=== PATIENT | male | born 1965 | race African-American/Black ===

== ENCOUNTER 2019-06-01 15:40 | Emergency (ER) | payer MEDICAID ==
[~2019-06-01] VITALS: Ht 170.2 cm; Wt 61.2 kg
[2019-06-01 15:40] VITALS: BP 137/87
--- NOTE | 2019-06-01 15:40 | NUR ---
ED Nurse Note: pt brought by [facility] from [facility] due to unable to unzip the pants zipper. per ambulace personnel, SNF staff able to remove the pants but zipper still on left side of scrotum. pt denies any pain. no swelling or bleeding noted. pt is non-verbal. follow the commands and answer using gesture. breath sound clear. respirations even and non-labored noted. will wait for the further order.
--- NOTE | 2019-06-01 15:42 | Emergency Room Report ---
History of Present Illness General Chief Complaint: Male Urogenital Problems Source: Patient, EMS Present Illness HPI The patient presents with a zipper caught in his scrotum. There will able to cut off the cloth portion of his pants but the zipper portion is still stuck. History of unspecified dementia. The patient denies prior stroke he is in assisted living. No fevers, chills, sore throat, chest pain, palpitations, nausea, vomiting, diarrhea, dysuria, abdominal pain, shortness of breath, joint pain, depression, anxiety, visual changes, headache. Allergies: Coded Allergies: No Known Allergies (Unverified , 06/01/19) Patient History Past Medical History: see triage record, old chart reviewed, other - Unspecified dementia Social History Narrative Son Ray convalescent Reviewed Nursing Documentation: PMH: Agreed; PSxH: Agreed Nursing Documentation-PMH Hx Cardiac Problems: No - Peripheral Vascular Disease History Of Psychiatric Problem: Yes - Unspecified Dementia Review of Systems All Other Systems: negative except mentioned in HPI Physical Exam Vital Signs Date Time Temp Pulse Resp B/P (MAP) Pulse Ox O2 Delivery O2 Flow Rate FiO2 06/01/19 15:32 99.7 93 18 137/87 (104) 95 Room Air Sp02 EP Interpretation: reviewed, normal General Appearance: no apparent distress, GCS 15, Chronically Ill Head: normocephalic, other - Scar forehead Eyes: bilateral eye normal inspection, bilateral eye PERRL, bilateral eye EOMI ENT: moist mucus membranes Neck: full range of motion, supple Respiratory: lungs clear Cardiovascular #1: regular rate, rhythm Gastrointestinal: normal inspection, non tender Genitourinary: no CVA tenderness, penis normal, other - Zipper stuck on left scrotum Musculoskeletal: other - Atrophy Neurologic: alert, other - Dysarthria, ataxic movements of arms Psychiatric: mood/affect normal Skin: warm/dry, abrasions - Scrotum after zipper removed Medical Decision Making Diagnostic Impression: Primary Impression: Zipper injury scrotum Additional Impression: Abrasion of scrotum Qualified Codes: S30.813A - Abrasion of scrotum and testes, initial encounter ER Course Patient presents with a zipper stuck on his scrotum. He is nontoxic and there is no fever. This needs to be removed. Unable to remove 10 snaps provided by environmental services. However the zipper was slightly loosened. When attempting to obtain wire cutters nurse was able to remove the zipper. Neosporin was applied. Patient stable for outpatient observation and treatment. Last Vital Signs Date Time Temp Pulse Resp B/P (MAP) Pulse Ox O2 Delivery O2 Flow Rate FiO2 06/01/19 20:14 98.5 76 18 143/97 96 Room Air Status: improved Disposition: ASSISTED LIVING Condition: Improved Scripts Bacitracin (Bacitracin) 28.4 Gm Oint...g. 1 APPLIC TOPIC BIDAC, #20 GM Prov: Endy Grewal MD 06/01/19 Endy Grewal MD Jun 01, 2019 15:42
--- NOTE | 2019-06-01 17:30 | NUR ---
ED Nurse Note: MARTHA Magana able to unzipped the zipper. no active bleeding noted. no swelling noted. Dr. Grewal notified.
[2019-06-01] MEDS ORDERED: Neosporin Oint Ud Pkt TOPIC ONE (17:45)
[2019-06-01] MEDS ORDERED: BACITRACIN15 GM TOPIC (17:51)
--- NOTE | 2019-06-01 18:36 | NUR ---
ED Nurse Note: Reports given to MARTHA Machuca at [facility].
[2019-06-01 18:57] VITALS: BP 150/100
--- NOTE | 2019-06-01 19:08 | NUR ---
ED Nurse Note: received report from Elisabet and [facility], pt vss, resp even and unlabored on RA, pt is cleared to go back to the facility, pending transportation.
--- NOTE | 2019-06-01 19:08 | NUR ---
HAND-OFF: Report given to Juan THOMAS. pending transportation
--- NOTE | 2019-06-01 19:50 | NUR ---
ED Nurse Note: pt given sandwich. verified w/ ermd.
--- NOTE | 2019-06-01 20:00 | NUR ---
[facility] just arrived.
--- NOTE | 2019-06-01 20:01 | NUR ---
ED Nurse Note: report given to EMS staff, pt is cleared to be discharged per ERMD, pt will be transferring back to [facility]. care endorsed to ambulance staff.
--- NOTE | 2019-06-01 20:13 | NUR ---
ED Nurse Note: discharge paperwork w/ prescription given to ems staff to endorse it to medical staff at [facility].
[2019-06-01 20:14] VITALS: BP 143/97
== END 2019-06-01 20:14 | disposition home or self-care (01) ==
LOC: EDBD 15:40 → EMR 16:34
DX: S30.813A Abrasion of scrotum and testes, initial encounter (principal); F03.90 Unspecified dementia, unspecified severity, without behavioral disturbance, psychotic disturbance, mood disturbance, and anxiety; I73.9 Peripheral vascular disease, unspecified; W23.0XXA Caught, crushed, jammed, or pinched between moving objects, initial encounter; Y92.099 Unspecified place in other non-institutional residence as the place of occurrence of the external cause
CPT/HCPCS: 99283